=== PATIENT | female | born 1945 | race Caucasian/White ===

== ENCOUNTER → 2024-12-12 09:57 | Outpatient (REF) | payer MEDICARE, SELFPAY ==
[2024-12-12 10:18] LABS: % Eosinophils 2.3 % (0-6); % Immature Granulocytes 0.2 % (0-0.5); % Lymphocytes 35.4 % (20.5-51.1); % Neutrophils 53.1 % (42.2-75.2); Absolute Basophils 0.1 10^3/uL (0-0.2); Absolute Eosinophils 0.1 10^3/uL (0-0.7); Absolute Lymphocytes 1.8 10^3/uL (1.2-3.4); Absolute Monocytes 0.4 10^3/uL (0.1-0.6); Absolute Neutrophils 2.7 10^3/uL (1.4-6.5); Hematocrit 35.4 % (37.0-47.0); Mean Corp Hgb Conc. 33.9 g/dL (33.0-37.0); Mean Corpuscular Hgb 29.6 pg (27.0-31.0); Mean Corpuscular Volume 87.2 fL (81.0-99.0); Mean Platelet Volume 10.9 fL (7.4-10.4); Nucleated Red Blood Cells % 0 %; Platelet Count 165 10^3/uL (130-400); Red Blood Cell Count 4.06 10^6/uL (4.20-5.40); Red Cell Dist. Width 12.6 % (11.5-14.5); White Blood Cell Count 5.1 10^3/uL (4.8-10.8)
[2024-12-12 10:38] LABS: Blood Urea Nitrogen 30 mg/dl (7-17); Calcium 9.4 mg/dl (8.4-10.2); Carbon Dioxide 23 mmol/L (22-30); Chloride 102 mmol/L (98-107); Glucose 77 mg/dl (70-99); HDL Cholesterol 66 mg/dl; LDL Cholesterol, Calculated 49 mg/dl; Potassium 4.7 mmol/L (3.5-5.1); Sodium 136 mmol/L (135-145); Total Cholesterol 140 mg/dl (50-199); Triglyceride 128 mg/dl (10-149); Very Low Density Lipoprotein 25 mg/dl (0-30); eGFR 35.45
== END ==
LOC: OLABN 09:57
PROVIDERS: ATTENDING PHYSICIAN Student in an Organized Health Care Education/Training Program
DX: I10 Essential (primary) hypertension (principal); N18.30 Chronic kidney disease, stage 3 unspecified; E78.5 Hyperlipidemia, unspecified
CPT/HCPCS: 36415; 80048; 80061; 85025

== ENCOUNTER 2025-03-14 13:46 | Emergency (ER) | payer MEDICARE, SELFPAY ==
[2025-03-14 13:53] VITALS: BP 146/66
[2025-03-14 14:25] LABS: % Basophils 0.3 % (0-2); % Eosinophils 1.2 % (0-6); % Immature Granulocytes 0.1 % (0-0.5); % Lymphocytes 12.4 % (20.5-51.1); % Monocytes 6.4 % (1.7-9.3); % Neutrophils 79.6 % (42.2-75.2); Absolute Eosinophils 0.1 10^3/uL (0-0.7); Absolute Lymphocytes 1.1 10^3/uL (1.2-3.4); Absolute Monocytes 0.6 10^3/uL (0.1-0.6); Absolute Neutrophils 7.2 10^3/uL (1.4-6.5); Hematocrit 36.2 % (37.0-47.0); Hemoglobin 12.8 g/dL (12.0-16.0); Mean Corp Hgb Conc. 35.4 g/dL (33.0-37.0); Mean Corpuscular Hgb 30.3 pg (27.0-31.0); Mean Corpuscular Volume 85.6 fL (81.0-99.0); Mean Platelet Volume 9.3 fL (7.4-10.4); Nucleated Red Blood Cells % 0 %; Platelet Count 166 10^3/uL (130-400); Red Blood Cell Count 4.23 10^6/uL (4.20-5.40)
[2025-03-14 14:43] LABS: Troponin I < 0.012 ng/ml
[2025-03-14 14:48] LABS: ALT (SGPT) 16 U/L (0-35); AST (SGOT) 17 U/L (14-36); Albumin 4.1 g/dl (3.5-5.0); Alkaline Phosphatase 72 U/L (38-126); Blood Urea Nitrogen 20 mg/dl (7-17); Calcium 8.9 mg/dl (8.4-10.2); Carbon Dioxide 21 mmol/L (22-30); Chloride 104 mmol/L (98-107); Glucose 131 mg/dl (70-99); Lipase 37 U/L (23-300); Potassium 4.4 mmol/L (3.5-5.1); Sodium 135 mmol/L (135-145); Total Bilirubin 0.6 mg/dl (0.2-1.3); Total Protein 6.1 g/dl (6.3-8.2); eGFR > 60.00
--- NOTE | 2025-03-14 16:25 | ED.GENMED ---
History of Present Illness
General
Chief Complaint: Fainting/Passed Out
Source: patient and family
Exam Limitations: none
Time Seen by Provider: 03/14/25 16:08
Nursing documentation reviewed up to this point in time: agreed with
History of Present Illness
History of Present Illness:
Patient is a 79-year-old female with past medical history of primary lateral sclerosis hypertension hyperlipidemia reflux chronic renal failure presents to the ER for evaluation. Patient was sent by the long-term for near syncopal episode.
Patient able to speak however has some difficulty speaking chronically with her PLS history. Son at bedside and assisting. Patient reports she was given Colace this morning and after that she had 2 very large bowel movements. In the
afternoon she felt nauseous and while sitting in her wheelchair felt she was in a pass out got sweaty. She had no associated chest pain or shortness of breath with episode. She has no current symptoms now. She has had a cold recently and does
complain of a mild cough and runny nose.
Review of Systems
Review of Systems
Allergies reviewed?: Yes
All Other Systems: ROS reviewed and negative except as documented in HPI and ROS
Constitutional: Reports no symptoms; Denies fever, fatigue or chills
EENT: Reports runny nose
Respiratory: Reports cough; Denies trouble breathing
Cardiac: Reports other (Patient patient had episode near syncope around 1 PM); Denies chest pain, palpitations or syncope
ABD/GI: Reports nausea (Patient felt nauseous with a near syncopal episode denies now); Denies abdominal pain
: Reports no symptoms
Musculoskeletal: Reports no symptoms
Skin: Reports no symptoms
Neurological: Reports no symptoms
Endocrine: Reports no symptoms
Psychiatric: Reports no symptoms
Phy Exam
General Physical Exam
General Presentation: no apparent distress
General age: appears stated age
General Skin: warm and dry
General Habitus: normal
General Mental: alert
General Hydration: appears well hydrated
Cardiovascular Exam
Cardiovascular Exam: regular rate/rhythm, no murmur and normal peripheral pulses
Pulmonary Exam
Pulmonary Exam: lungs clear and no respiratory distress
Neurological Exam
Neurological Exam: alert and oriented x3
Musculoskeletal Exam
Musculoskeletal Exam: full ROM
Skin Exam
Skin Exam: normal color and warm/dry
Psychiatric Exam
Psychiatric Exam: normal mood/affect
Course
Orders/Labs/Results
Orders:
Orders
03/14/25 14:00
Electrocardiogram (*1) Urgent
Reason for Study: Syncope
03/14/25 14:01
EKG- Treatment ONCE
03/14/25 14:13
Complete Blood Count/With Diff Urgent
Comprehensive Metabolic Panel Urgent
Lipase Urgent
Troponin I Urgent
03/14/25 16:26
Straight cath- Treatment ONCE
Chest [CR Chest - 2 Views ] Urgent
Comment:
Reason For Exam: near syncope
03/14/25 16:29
0.9% Sodium Chloride 1000 ml [Nss] 1,000 ml IV BOLUS
03/14/25 16:37
COVID-19 Antigen Urgent
Source: Nasal Swab
UA Reflex to Culture [Urinalysis Reflex To Culture] Urgent
Date Specimen was Collected: 03/14/25
Time Specimen was Collected: 16:29
Urine Microscopic Reflex Cult Urgent
Influenza A+B Rapid Molecular Urgent
MARIANA Source: Nasal Swab
Specimen Description:
Abnormal Lab Results
03/14/25 03/14/25
14:13 16:37
Hct 36.2 L %
(37.0-47.0)
Absolute Neuts (auto) 7.2 H 10^3/uL
(1.4-6.5)
Absolute Lymphs (auto) 1.1 L 10^3/uL
(1.2-3.4)
Neutrophils % 79.6 H %
(42.2-75.2)
Lymphocytes % 12.4 L %
(20.5-51.1)
Carbon Dioxide 21 L mmol/L
(22-30)
BUN 20 H mg/dl
(7-17)
Glucose 131 H mg/dl
(70-99)
Total Protein 6.1 L g/dl
(6.3-8.2)
Ur Occult Blood Reflex 2+ A
(Negative)
Urine RBC 11-15 A /HPF
(0-2)
Urine Bacteria (Reflex) Few A
(Negative)
Urine Albumin (Reflex) 1+ A
(Neg - Trace)
03/14/25 14:13
03/14/25 14:13
Vital Signs
Initial and Last Documented VS:
Initial Vital Signs
Temp Pulse Resp BP Pulse Ox
98.4 F 68 18 146/66 97
03/14/25 13:53 03/14/25 13:53 03/14/25 13:53 03/14/25 13:53 03/14/25 13:53
Last Documented Vital Signs
Temp Pulse Resp BP Pulse Ox
98.4 F 87 16 127/55 96
03/14/25 13:53 03/14/25 19:00 03/14/25 19:00 03/14/25 19:00 03/14/25 19:00
Operating System Designer consulted with Physician
Operating System Designer consulted with physician?: Yes
Name of Physician Consulted: yelena
MDM/Problems Addressed
Differential Diagnosis Includes:
not limited to : syncope/vasovagal episode ,dehydration, infection, covid/pneumonia,influenza, uti
MDM/Problems Addressed:
Patient is a 79-year-old female with PLS from nursing facility presents for near syncopal episode while sitting in the chair at the long-term. Patient presented asymptomatic. She does report that she was given Colace and had 2 large episodes of
bowel movements this morning and then felt she was in a pass out prior to eating lunch (present prior to lunch.
She however presented awake alert and asymptomatic. Her labs are unremarkable. She denies any recent fever chills however does complain of mild runny nose. Her COVID and flu are negative her lungs are clear her chest x-ray is negative urinalysis
is negative for infection trace amount of blood.
She had no chest pain her cardiac troponin is negative no acute findings on EKG. Patient has been monitored here and remains in normal sinus rhythm with no arrhythmias.
On reexam patient is feeling much better and has been asymptomatic throughout the ER visit. Case reviewed ED physician will DC with outpatient follow-up family doctor as well as cardiology.
*Radiology
Radiology exam reviewed: radiology read reviewed
*Pulse Oximetry
Patient hypoxic: no
*EKG
Interpretation: normal
Comparison EKG: no comparison EKG present
Heart Rate: 64
Rhythm: sinus
*Critical Care Note
Total Time (30-74mins, 75-104mins- exclusive of procedures): Not Applicable
ED Attending Note
-
Portions of this chart may have been created with voice recognition software.� Occasional wrong word or��sound alike� substitutions may have occurred due to the inherent limitations of voice recognition software.
Discharge Plan
Departure
Patient Disposition: Long-Term/SNF
Date of Disposition: 03/14/25
Time of Disposition: 19:18
Patient with high blood pressure during this ER visit?: Yes
Covid-19: Not Applicable
Discharge Problem:
Syncope
Instructions: Syncope (Fainting) (DC)
Referrals:
Johny Benitez DO [Family Provider] -
Jarett Zamora MD [Active] -
Activity Restrictions/Additional Instructions:
Patient's workup was unremarkable here in the ER. It is recommended that she follow-up with cardiology for reevaluation. In addition patient's urine had small amount of blood and this will need a repeat urinalysis and followed by family doctor
Interventions
Interventions:
*Risk Screen - Suicide Last Done: 03/14/25 13:53
*General Assessment Last Done: 03/14/25 13:53
*ED COVID-19 Vaccine History Last Done: 03/14/25 13:53
ED- Cardiac Assessment Last Done: 03/14/25 16:57
ED- Neurological Assessment Last Done: 03/14/25 16:57
Discharge Date and Time
Print Language: CHINESE
[2025-03-14] MEDS: NSS 1000 IV (16:46)
[2025-03-14 17:01] LABS: Urine Albumin 1+ (Neg - Trace); Urine Bilirubin Negative (Negative); Urine Character Clear (Clear); Urine Color Yellow; Urine Glucose Negative (Negative); Urine Ketone Negative (Negative); Urine Leukocyte Negative (Negative); Urine Nitrite Negative (Negative); Urine Occult Blood 2+ (Negative); Urine Specific Gravity 1.015 (<1.030); Urine Urobilinogen Negative (Neg - 1+)
[2025-03-14 17:13] VITALS: BP 136/71
[2025-03-14 17:18] LABS: COVID-19 Antigen Negative (Negative)
[2025-03-14 17:26] LABS: Urine Squamous Cell 0-2 /LPF (Few); Urine White Cell 0-2 /HPF (0-5)
[2025-03-14 17:27] LABS: Urine Bacteria Few (Negative)
[2025-03-14 18:06] VITALS: BP 102/67
[2025-03-14 19:00] VITALS: BP 127/55
[2025-03-14 20:00] VITALS: BP 118/68
== END 2025-03-14 21:03 ==
LOC: EMR 13:46
PROVIDERS: Nurse Practitioner; Student in an Organized Health Care Education/Training Program; EMERGENCY PHYSICIAN Emergency Medicine; FAMILY PHYSICIAN Student in an Organized Health Care Education/Training Program
DX: R55 Syncope and collapse (principal); R11.0 Nausea; Z11.52 Encounter for screening for COVID-19; G12.23 Primary lateral sclerosis; E78.5 Hyperlipidemia, unspecified; I12.9 Hypertensive chronic kidney disease with stage 1 through stage 4 chronic kidney disease, or unspecified chronic kidney disease; N18.9 Chronic kidney disease, unspecified; R47.9 Unspecified speech disturbances; I70.90 Unspecified atherosclerosis; I73.9 Peripheral vascular disease, unspecified; M48.00 Spinal stenosis, site unspecified
CPT/HCPCS: 99285; 96360; 51701; 71046; 80053; 81003; 81015; 83690; 84484; 85025; 87502; 87811; 93005

== ENCOUNTER → 2025-04-11 10:10 | Outpatient (REF) | payer MEDICARE, SELFPAY | LOC: RST 10:10 | PROVIDERS: ATTENDING PHYSICIAN Nurse Practitioner; FAMILY PHYSICIAN Student in an Organized Health Care Education/Training Program | DX: R13.10 Dysphagia, unspecified (principal) | CPT/HCPCS: 74230; 92611 ==

== ENCOUNTER → 2025-06-12 13:41 | Outpatient (REF) | payer MEDICARE, SELFPAY | LOC: RCS 13:41 | PROVIDERS: ATTENDING PHYSICIAN Internal Medicine Cardiovascular Disease; FAMILY PHYSICIAN Student in an Organized Health Care Education/Training Program | DX: R55 Syncope and collapse (principal); I10 Essential (primary) hypertension; R94.31 Abnormal electrocardiogram [ECG] [EKG] | CPT/HCPCS: 93225; 93226 ==

== ENCOUNTER → 2025-06-13 14:11 | Outpatient (REF) | payer MEDICARE, SELFPAY | LOC: RCS 14:11 | PROVIDERS: ATTENDING PHYSICIAN Internal Medicine Cardiovascular Disease; FAMILY PHYSICIAN Student in an Organized Health Care Education/Training Program | DX: R55 Syncope and collapse (principal); I10 Essential (primary) hypertension; R94.31 Abnormal electrocardiogram [ECG] [EKG] | CPT/HCPCS: 93306 ==

== ENCOUNTER → 2025-10-25 09:53 | Outpatient (REF) | payer MEDICARE, SELFPAY | LOC: MRI 09:53 | PROVIDERS: ATTENDING PHYSICIAN Anesthesiology | DX: M54.16 Radiculopathy, lumbar region (principal) | CPT/HCPCS: 72148 ==